=== PATIENT | female | born 1980 | race Asian ===

== ENCOUNTER 2022-02-18 08:23 | Outpatient (REF) | payer OTHER, SELFPAY ==
--- NOTE | ~2022-02-18 | MM_ITS ---
EXAMINATION: MM DIAGNOSTIC DIGITAL BREAST TOMOSYNTHESIS, BILATERAL US DIAGNOSTIC ULTRASOUND BREAST, BILATERAL CLINICAL INFORMATION: 41-year-old with bilateral breast pain upper outer quadrants. No palpable mass or discharge. Prior mammography performed in [place] and unavailable. No known family history breast cancer. TC score 12%. COMPARISON: None (current study represents new baseline exam). TECHNIQUE: Digital breast tomosynthesis is performed in both the craniocaudal and mediolateral oblique views along with computer-aided detection (CAD). Synthesized 2D images are generated from the tomosynthesis. Ultrasound bilateral breasts is targeted to the areas of clinical concern upper outer quadrant. Grayscale imaging and color Doppler are performed without and with harmonics. FINDINGS: There are scattered areas of fibroglandular density (ACR BI-RADS breast composition Category b). Breast tissue composition borders on heterogeneously dense. There is no mass or architectural abnormality. No abnormal calcifications. The axilla are unremarkable. Skin contours are smooth. There is no skin thickening or coarsening of the Brayden's ligaments. Ultrasound bilateral breasts demonstrate no cystic or solid mass, architectural abnormality, or focal duct ectasia on either side. There is no skin thickening or edema tracking in the soft tissue planes. No hyperemia. Results are discussed with the patient at time of visit. Patient notes the breast pain is cyclical, waxing and waning with menses. If the outside mammography is able to be retrieved, we will be able to make comparison in an addendum report. MM/MM tomosynthesis diagnostic BI IMPRESSION: -No mammographic evidence of malignancy or inflammatory changes. -Unremarkable bilateral breast ultrasound. ASSESSMENT: BI-RADS 1: Negative RECOMMENDATION: 1. 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 2. Otherwise, routine annual screening mammography. This patient's information was entered into a reminder system with a target due date for their next mammogram.
== END 2022-02-18 08:24 | disposition home or self-care (01) ==
LOC: HO.MAMMO 08:23
PROVIDERS: PCP Family Medicine; Visit Provider Family Medicine
DX: N64.4 Mastodynia (principal)
CPT/HCPCS: 76642; 77062; 77066

== ENCOUNTER 2025-02-09 10:43 | Outpatient (REF) | payer MEDICAID, SELFPAY ==
--- OUTSIDE RECORDS SUMMARY | 2025-02-10 09:18 | XMS_ITS | Encounter Summary ---
Author Organization [employer] Address [address] [facility] [address] [place] [address] Care Team Providers Care Mask Inspector Name Role Phone Linda Underwood MD Primary Care Provider [phone] Reason for Visit * Reason Onset Date Comments chart prep 02/08/2025 Encounter Details Date Type Department Care Team ([facility] st Contact Info) Description 02/08/[address] [facility] MEDICINE [address] [place], [place] [phone] Monik Keane CNM [address] [place], [place] [phone] chart prep Social History Tobacco Use Types Packs/Day Years Used Date Smoking Tobacco: Never Assessed Depression Answer Date Recorded Patient Health Questionnaire-9 Score 1 02/09/2025 Patient Health Questionnaire-9 Score 1 02/09/2025 Last PHQ-9: Questionnaire Data Not on file 0 02/09/2025 Housing Stability Answer Date Recorded What is your housing situation today? I have wale rogel 02/09/[address] you li ve. Do you have problems with any of the following? None of the above 02/09/2025 Food Insecurity Answer Date Recorded Within the past 12 months, y ou worried that your food would run out before you got money to buy more: Never True 02/09/2025 Within the past 12 months,th e food you bought just didn't last and you didn't have enough money to get more: Never True Transportation Answer Date Recorded In the past 12 months, has l ack of transportation kept you from medical appts, meetings, work or from getting things needed for daily living? No 02/09/2025 Utilities Answer Date Recorded In the past 12 months, has t he electric, gas, oil or water company threatened to shut off services in your home? No 02/09/2025 Depression Answer Date Recorded Patient Health Questionnaire-2 Score 0 02/09/2025 Internet Access Answer Date Recorded Internet Access Q1 Yes 02/09/2025 Internet Access Q2 Not on file 02/09/2025 Comments Unknown Sex and Gender Information Value Date Recorded Sex Assigned at Female 04/21/2022 10:38 AM EDT Legal Sex Female 10:38 AM EDT Gender Identity Female 04/21/2022 10:38 AM EDT Sexual Orientation Don't know 04/21/2022 10 :38 AM EDT documented as of this encounter Miscellaneous Notes * Telephone Encounter - America Welch MA - 02/08/2025 10:05 AM EDT ..Chart Prep Labs: not applicable Images: not applicable Vaccines due: Covid Due and Hep B Due Referrals: Not Applicable Screenings: Colonoscopy , PAP, and Mammogram Overdue care gaps: Sbirt, SDOH, PQ9, GAD7, Disability , and Oral Health documented in this encounter Plan of Treatment Not on file documented as of this encounter Visit Diagnoses Not on filedocumented in this encounter Care Teams Mask Inspector Relationship Specialty Start Date End Date Linda Underwood MD [address] [place] [address] PCP - General Family Medicine 07/03/21 documented as of this encounter
[2025-02-13 19:58] LABS: C. trachomatis RNA TMA NOT DETECTED (NOT DETECTED); N. gonorrhoeae RNA TMA NOT DETECTED (NOT DETECTED); Trichomonas (NAAT) NOT DETECTED (NOT DETECTED)
== END 2025-02-09 10:44 | disposition home or self-care (01) ==
LOC: HO.LNP 10:43
PROVIDERS: Visit Provider Advanced Practice Midwife
DX: Z12.4 Encounter for screening for malignant neoplasm of cervix (principal); Z11.3 Encounter for screening for infections with a predominantly sexual mode of transmission; Z11.51 Encounter for screening for human papillomavirus (HPV); Z11.8 Encounter for screening for other infectious and parasitic diseases; R35.0 Frequency of micturition
CPT/HCPCS: 87086; 87491; 87591; 87626; 87661; 88175

== ENCOUNTER 2025-03-27 13:27 | Outpatient (REF) | payer MEDICAID, SELFPAY ==
--- OUTSIDE RECORDS SUMMARY | 2025-03-27 13:00 | XMS_ITS | Encounter Summary ---
Author Organization [employer] Address [address] [facility] [address] [place] [address] Care Team Providers Care Deep Sea Diver Name Role Phone Linda Underwood MD Primary Care Provider [phone] Encounter Details Date Type Department Care Team (Late st Contact Info) Description 03/27/2025 1:00 PM EDT Office Visit [facility] MEDICINE [address] [place], [place] [phone] Linda Underwood MD [address] [place], [place] [phone] Rash (Primary Dx); Colon cancer screening; Breast cancer screening by mammogram; Screening for lipid disorders; Screening for diabetes mellitus Social History Tobacco Use Types Packs/Day Years Used Date Smoking Tobacco: Former Cigarettes Passive Smoke Exposure: Current Smokeless Tobacco: Former Tobacco Cessation:Counseling Given: Not Answered Alcohol Use Standard Drinks/Week Comments Never 0 (1 standard drink = 0.6 oz pur e alcohol) Depression Answer Date Recorded Patient Health Questionnaire-9 [...] Access Q2 Not on file 02/09/2025 Comments No Sex and Gender Information Value Date Recorded Sex Assigned at Female 04/21/2022 10:38 AM EDT Legal Sex Female 10:38 AM EDT Gender Identity Female 04/21/2022 10:38 AM EDT Sexual Orientation Don't know 04/21/2022 10 :38 AM EDT documented as of this encounter Last Filed Vital Signs Vital Sign Reading Time Taken Comments Blood Pressure 110/70 03/27/2025 12:59 PM EDT Pulse 77 03/27/2025 12:59 PM EDT Temperature 36.7 C (98.1 F) 03/27/2025 12:59 PM EDT Respiratory Rate 20 03/27/2025 12:59 PM EDT Oxygen Saturation 97% 03/27/2025 12:59 PM EDT Inhaled Oxygen Concentration - - Weight 71.8 kg (158 lb 3.2 oz) 03/27/2025 12:59 PM EDT Height 170.2 cm (5' 7 ) 03/27/2025 12:59 PM EDT Body Mass Index 24.78 03/27/2025 12:59 PM EDT documented in this encounter Plan of Treatment Scheduled Orders Name Type Priority Associated Diagnoses Orde r Schedule Comprehensive Metabolic Panel Lab Routine Rash Expected: 03/27/2025 (Approximate), Expires: 03/27/2026 CBC auto differential Lab Routine Rash Expected: 03/27/2025 (Approximate), Expires: 03/27/2026 Lipid Panel with Reflex to Direct LDL Lab Routine Screening for lipid disorders Expected: 03/27/2025 (Approximate), Expires: 03/27/2026 TSH with Reflex to Free T4 Lab Routine Rash Expected: 03/27/2025 (Approximate), Expires: 03/27/2026 Hemoglobin A1c Lab Routine Screening for diabetes mellitus Expected: 03/27/2025 (Approximate), Expires: 03/27/2026 Cologuard colon cancer screening Lab Routine Colon cancer screening Ordered: 03/27/2025 documented as of this encounter Visit Diagnoses Diagnosis Rash- Primary Rash and other nonspecific skin eruption Colon cancer screening Special screening for malignant neoplasms, colon Breast cancer screening by mammogram Screening for lipid disorders Screening for diabetes mellitus documented in this encounter Additional Health Concerns Assessment Noted Time PHQ-9 Depression Total Score: 1 02/10/20 25 11:08 AM EDT documented as of this encounter Care Teams Deep Sea Diver Relationship Specialty Start Date End Date Linda Underwood MD [address] [place] [address] PCP - General Family Medicine 07/03/21 documented as of this encounter
--- OUTSIDE RECORDS SUMMARY | 2025-03-27 15:49 | XMS_ITS | Encounter Summary ---
Author Organization [email or web address] Address [address] [facility] [address]t [place] [address] Care Team Providers Care Geographic Information Systems Manager Name Role Phone Linda Underwood MD Primary Care Provider [phone] Reason for Visit * Reason Onset Date Comments Med Refill 02/14/2025 Encounter Details Date Type Department Care Team ([facility] st Contact Info) Description 02/14/2025 Telephone [facility] MEDICINE [address] [place], [place] [phone] Linda Underwood MD [address] [place], [place] [phone] Med Refill Social History Tobacco Use Types Packs/Day Years Used Date Smoking Tobacco: Former Cigarettes Passive Smoke Exposure: Current Smokeless Tobacco: Former Alcohol Use Standard Drinks/Week Comments Never 0 [...] encounter Miscellaneous Notes * Telephone Encounter - Ruby Pierre LPN - 02/14/2025 12:59 PM EDT Medication was sent to [id number] on 02/09/25 it was short term 1 dose. * Telephone Encounter - Usama Rodriguez - 02/14/2025 12:19 PM EDT TC from pt requesting medication refill. Medications needing refill : fluconazole (Diflucan) 150 MG tablet To be sent to: [facility] #[id number] documented in this encounter Plan of Treatment Not on file documented as of this encounter Visit Diagnoses Not on filedocumented in this encounter Additional Health Concerns Assessment Noted Time PHQ-9 Depression Total Score: 1 02/10/20 25 11:08 AM EDT documented as of this encounter Care Teams Geographic Information Systems Manager Relationship Specialty Start Date End Date Linda Underwood MD [address] [place] [id number] PCP - General Family Medicine 07/03/21 documented as of this encounter
--- OUTSIDE RECORDS SUMMARY | 2025-03-27 15:49 | XMS_ITS | Encounter Summary ---
Author Organization [employer] Address [address] [facility] [address] [place] [address] Care Team Providers Care Timber Sizer Name Role Phone Linda Underwood MD Primary Care Provider [phone] Reason for Visit * Reason Onset Date Comments Results 02/16/2025 Encounter Details Date Type Department Care Team ([facility] st Contact Info) Description 02/16/2025 Results Follow-Up [facility] MEDICINE [address] [place] [address] Monik Keane CNM [address] [place] [address] POCT urinalysis dipstick manually resulted, Culture, Urine, Routine, Pap Smear, STI testing add on (NG, CT, Trich) Social History Tobacco Use Types Packs/Day Years [...] as of this encounter Miscellaneous Notes * Result Encounter Note - Monik Keane CNM - 02/17/2025 8:55 AM EDT Noted. Rx sent in - thanks! If she continues to have vaginal symptoms or urinary symptoms after treatment, will need appointment. * Telephone Encounter - Pat Rodriguez RN - 02/16/2025 2:11 PM EDT Telephone call placed to pt utilizing [facility] [employer] historic interpreter #[id number] regarding below results and POC. Informed Pap normal, HPV negative. Pt requesting Ucx results. Informed Cx negative, no UTI. Informed of bacterial shift in pap. Pt confirms she is still having vaginal Sx. Prefers pills be sent. Confirmed pharmacy on file. * Telephone Encounter - Pat Rodriguez RN - 02/16/2025 1:50 PM EDT ----- Message from Monik Keane sent at 02/16/2025 11:54 AM EDT ----- Please let Diane know her pap was normal, HPV negative. If she is still having vaginal symptoms, please let me know and I will send in treatment for bacterial vaginosis shift noted on pap. Thanks! ----- Message ----- From: Mauricio Medina MA Sent: 02/09/2025 10:52 AM EDT To: Monik Keane CNM * Result Encounter Note - Monik Keane CNM - 02/16/2025 11:54 AM EDT Please let Diane know her pap was normal, HPV negative. If she is still having vaginal symptoms, please let me know and I will send in treatment for bacterial vaginosis shift noted on pap. Thanks! documented in this encounter Plan of Treatment Not on file documented as of this encounter Visit Diagnoses Not on filedocumented in this encounter Additional Health Concerns Assessment Noted Time PHQ-9 Depression Total Score: 1 02/10/20 25 11:08 AM EDT documented as of this encounter Care Teams Timber Sizer Relationship Specialty Start Date End Date Linda Underwood MD [address] [place] [address] PCP - General Family Medicine 07/03/21 documented as of this encounter
--- OUTSIDE RECORDS SUMMARY | 2025-03-27 15:49 | XMS_ITS | Encounter Summary ---
Author Organization [employer] Address [address] [place] [address] Care Team Providers Care Configuration Management Manager Name Role Phone Linda Underwood MD Primary Care Provider [phone] Encounter Details Date Type Department Care Team (Late st Contact Info) Description 03/24/2025 Telephone [facility] [address] [place] [address] Isabelle Hope [place] Social History Tobacco Use Types Packs/Day Years [...] encounter Miscellaneous Notes * Telephone Encounter - Isabelle Hope [place] - 03/24/2025 10:19 AM EDT Chart Prep Labs: done Images: not applicable Referrals: none Vaccines due: Covid and Flu Screenings: colonoscopy and mammogram Overdue care gaps: Not applicable documented in this encounter Plan of Treatment Not on file documented as of this encounter Visit Diagnoses Not on filedocumented in this encounter Additional Health Concerns Assessment Noted Time PHQ-9 Depression Total Score: 1 02/10/20 25 11:08 AM EDT documented as of this encounter Care Teams Configuration Management Manager Relationship Specialty Start Date End Date Linda Underwood MD [address] [place] [address] PCP - General Family Medicine 07/03/21 documented as of this encounter
--- OUTSIDE RECORDS SUMMARY | 2025-03-27 15:49 | XMS_ITS | Encounter Summary ---
Author Organization [employer] Address [address] [place] [address] Care Team Providers Care Coke Handling Supervisor Name Role Phone Linda Underwood MD Primary Care Provider [phone] Encounter Details Date Type Department Care Team (Latest Contact Info) Description 03/27/2025 Travel Social History Tobacco Use Types Packs/Day Years [...] AM EDT documented as of this encounter Plan of Treatment Not on file documented as of this encounter Visit Diagnoses Not on filedocumented in this encounter Additional Health Concerns Assessment Noted Time PHQ-9 Depression Total Score: 1 02/10/20 25 11:08 AM EDT documented as of this encounter Care Teams Coke Handling Supervisor Relationship Specialty Start Date End Date Linda Underwood MD [address] [place] [address] PCP - General Family Medicine 07/03/21 documented as of this encounter
--- OUTSIDE RECORDS SUMMARY | 2025-03-27 15:49 | XMS_ITS | Clinical Summary ---
Author Organization [employer] Address [address] [facility] 7 h Floor [place] [phone] Care Team Providers Care Financial Officer Name Role Phone Linda Underwood MD Primary Care Provider [phone] Allergies No known active allergies Medications clobetasol (Temovate) 0.05 % cream Apply topically 2 times daily. 45 g 1 Active Active Problems No known active problems Encounters Date Type Department Care Team Description 03/27/2025 1:00 PM EDT Office Visit [address] [address] Linda Underwood MD Rash (Primary Dx); Colon cancer screening; Breast cancer screening by mammogram; Screening for lipid disorders; Screening for diabetes mellitus 03/27/2025 Travel 03/24/2025 Telephone [facility] [address] [place] [address] [phone] Isabelle Hope [place] 03/20/2025 Patient Outreach [facility] [address] [place], [place] [phone] Linda Underwood MD Pre-visit Planning ([facility] unable to reach [facility] ) 02/17/2025 Orders Only [address] [phone] Katie Solomon CNM 02/16/2025 Results Follow-Up [address] [phone] Katie Solomon CNM POCT urinalysis dipstick manually resulted, Culture, Urine, Routine, Pap Smear, STI testing add on (NG, CT, Trich) 02/14/[address] [phone] Linda Underwood MD Med Refill 02/09/2025 10:15 AM EDT Office Visit [facility] [address] [place] [address] Katie Solomon CNM Urinary frequency (Primary Dx); Routine cervical smear; Screening examination for venereal disease; Candidiasis of vulva and vagina 02/09/2025 Orders Only [facility] [address] [place] [address] Katie Solomon CNM 02/09/2025 Travel 02/08/2025 Telephone [facility] [address] [place] [address] Kaite Solomon CNM chart prep 01/30/2025 Travel 01/30/2025 Telephone [facility] [address] [place] [address] Linda Underwood MD Nurse Triage from Last 3 Months Social History Tobacco Use Types Packs/Day Years [...] Q2 Not on file 02/09/2025 Comments No Intention Date Recorded Wants to become (finding) 02/09 Sex and Gender Information Value Date Recorded Sex Assigned at Female 04/21/2022 10:38 AM EDT Legal Sex Female 10:38 AM EDT Gender Identity Female 04/21/2022 10:38 AM EDT Sexual Orientation Don't know 04/21/2022 10 :38 AM EDT Last Filed Vital Signs Vital Sign Reading [...] Mass Index 24.78 03/27/2025 12:59 PM EDT Plan of Treatment Health Maintenance Due Date Last Done Comments CT Colonography 1980 Colonoscopy 1980 Colorectal Cancer Screening 1980 FIT DNA/Cologuard 1980 FIT 1980 FOBT 1980 Sigmoidoscopy 1980 Mammogram 02/19/2024 02/18/2022 COVID-19 Vaccine ( season) 2025 05/06/2022, 06/26/2021, 12/16/2020, Additional history exists Influenza Vaccine (#1) 2025 , 06/26/2021, 03/26/2020 Alcohol/Substance Use Screening 02/09/2026 02/09/2025 Depression Screening 02/09/2026 02/09/2025, 02/10/20 25 Disability Screening 02/09/2026 02/09/2025 Family Planning (PISQ) 02/09/2026 02/09/2025 SDOH Screening 02/09/2026 02/09/2025 Tobacco Screening 03/27/2026 03/27/2025 Zoster Vaccines (1 of 2) 2028 Cervical Cancer Screening 02/09/2030 HPV/Cotest 02/09/2030 02/09/2025 Pap Smear 02/09/2030 02/09/2025 DTaP/Tdap/Td Vaccines (2 - Td or Tdap) 12/31/2030 12/31/2020 RSV Patients and Patients Aged 60 years or older (1 - 1-dose 75+ series) 2053 HIV Screening Completed 02/17/2022 Hepatitis C Screening Completed 02/17/2022 HIB Vaccines Aged Out No longer eligi ble based on patient's age to complete this topic HPV Vaccines Aged Out No longer eligi ble based on patient's age to complete this topic Hepatitis A Vaccines Aged Out No long er eligible based on patient's age to complete this topic Hepatitis B Vaccines Discontinued IPV Vaccines Aged Out No longer eligi ble based on patient's age to complete this topic Meningococcal B Vaccine Aged Out No l onger eligible based on patient's age to complete this topic Meningococcal Vaccine Aged Out No michelle sydni eligible based on patient's age to complete this topic Pneumococcal Vaccine: Pediatrics (0 to 5 Years) and At-Risk Patients (6 to 49) Years Aged Out No longer eligible based on patient's age to complete this topic RSV under 20 months Aged Out No longe r eligible based on patient's age to complete this topic Rotavirus Vaccines Aged Out No longer eligible based on patient's age to complete this topic Procedures Procedure Name Priority Date/Time Associated Diagnosis Comments POCT WET MOUNT/PINKY Routine 02/09/2025 10 :55 AM EDT Candidiasis of vulva and vagina POCT URINALYSIS DIPSTICK Routine 02/09/2025 10:49 AM EDT Urinary frequency CHLAMYDIA/N. GONORRHOEAE AND T. VAGINALIS RNA, QUAL,TMA Routine 02/09/2025 10:43 AM EDT Screening examination for venereal disease PAP SMEAR Routine 02/09/2025 10:43 AM EDT Routine cervical smear HPV DNA, LOW/HIGH RISK Routine 02/09/2025 10:43 AM EDT CULTURE, URINE, ROUTINE Routine 02/09/2025 10:43 AM EDT Urinary frequency MAMMOGRAM GENERIC Routine 02/18/2022 9:2 5 AM EDT ZZZ HISTORICAL HEPATITIS C AB W/REFL TO HCV RNA, QN, PCR Routine 02/17/2022 10:47 AM EDT HIV 1/2 ANTIGEN/ANTIBODY, FOURTH GENERATION W/RFL Routine 02/17/2022 10:47 AM EDT from Last 3 Months or Most Recently Relevant to Health Maintenance Results * POCT fern test, vaginal fluid manually resulted (02/09/2025 10:55 AM EDT) PINKY Prep Positive Comment:pH 4.5, pos hyphae, neg clue, neg trich, neg whiff, nen wbc Vaginal Fluid Vaginal structure / Unknown 02/09/2025 10:55 AM EDT Katie Solomon CNM POINT OF CARE TEST ENTER/ EDIT ORDERABLES Final Result * (ABNORMAL) POCT urinalysis dipstick manually resulted (02/09/2025 10:49 AM EDT) Color, UA Yellow Clarity, UA Clear Glucose, UA Negative Bilirubin, UA Negative Ketones, UA Negative Spec Grav, UA 1.010 Blood, UA Positive(A) Negative, None Detected Comment:trace-intact pH, UA 6.0 Protein, UA Negative Urobilinogen, UA 0.2 Leukocytes, UA Negative Negative, Rare, Trace Nitrite, UA Negative Negative, None Detected Appearance, UA clear QC Media Lot # [id number] Lot# Expiration Date [id number] Urine 02/09/2025 10:4 9 AM EDT Katie Solomon CNM POINT OF CARE TEST ENTER/ EDIT ORDERABLES Final Result * STI testing add on (NG, CT, Trich) (02/09/2025 10:43 AM EDT) Trichomonas (NAAT) NOT DETECTED NOT DETECTED [facility] Comment:The analytical perfo rmance characteristics of thisassay have been determined by [employer]. Themodifications have not been cleared or approved bythe FDA. This assay has been validated pursuant to theIA regulations and is used for clinical purposes.For additional information, please refer tohttp://education.99.co/faq/Trichomonastma(This link is being provided for information/educational purposes only.)THIS TEST WAS PERFORMED AT:[facility] [place] [phone] LANZA MD CTNG Ref Lab NOT DETECTED NOT DETECTED [facility] NG Ref Lab NOT DETECTED NOT DETECTED [facility] ThinPrep vial Cervix uteri structure / Unknown 02/09/2025 10:43 AM EDT 02/09/2025 1:55 PM EDT Narrative [facility] - 02/13/2025 7:58 PM EDT Collection Date: [id number] by: TITI Shelton: Cervix Katie Solomon CNM LAB CYTOLOGY ORDERABLES F inal Result [facility] [address] [place] [phone] * HPV DNA, Low/High Risk (02/09/2025 10:43 AM EDT) HPV High Risk Negative Negative [facility] HPV Genotype 16 Negative Negative [facility] HPV Genotype 18 Negative Negative [facility] Comment:HPV testing performe d at [facility] (CLIA#[id number]), [address] [place] [phone].Testing for HPV was performed using the Grabiel LISA 6800system. The presence of HPV in the female genital tract isassociated with a number of diseases, including cervicalcarcinoma. The HPV DNA high risk pool tests for HPV 31, 33,35, 39, 45, 51, 52, 56, 58, 59, 66 and 68. The testing forHPV 16 and 18 genotypes has also been performed. A positiveresult indicates detection of nucleic acid sequences fromone or more subtypes, whereas a negative result indicatessuch sequences were not detected. 02/09/2025 10:4 3 AM EDT 02/10/2025 8:25 AM EDT Katie Solomon [facility] BLOOD ORDERABLES Nimisha l Result [facility] [address] [place] [phone] * Culture, Urine, Routine (02/09/2025 10:43 AM EDT) Urine Urine specimen obtained by clean catch procedure / Unknown 02/09/2025 10:43 AM EDT 02/09/2025 1:47 PM EDT Comment:UACC Narrative [facility] - 02/10/2025 11:21 AM EDT Urine Culture No growth. Specimen Source: Urine clean catch Katie Solomon [facility] MICROBIOLOGY - GENERA L ORDERABLES Final Result [facility] [address] [place] [phone] * Pap Smear (02/09/2025 10:43 AM EDT) Swab Cervix uteri structure / Unknown 02/09/2025 10:43 AM EDT 02/10/2025 8:25 AM EDT [facility] - 02/16/2025 11:46 AM EDT ----- ------- Name: JANAE GARCIA Age/Sex: 44/F : 1980 Unit#: [id number] Attend Dr: KATIE SOLOMON CNM Re02/09/25 Status: [facility] REF Location: [facility] Disch: ----- ------- SPEC : [id number] RECD: 02/10/25 STATUS: MIKE LOCO NUM: [id number] MAYO: 02/09/25-[address] [facility] [address]: KATIE SOLOMON CNM ENTERED: 02/10/25 SP TYPE: Pap Smr OT DR: ORDERED: Pap Smear Interpretation Satisfactory for evaluation. Negative for intraepithelial lesion or malignancy. Coccobacilli consistent with shift in vaginal ange. HPV High Risk: Negative HPV Genotyping 16: Negative HPV Genotyping 18: Negative Clinical Information LMP: 01/23/2025 Previous PAP test: 2019, Unknown findings Other history: Routine cervical smear Material Received ThinPrep-Cervical PAP Disclaimer As of April 13, 2024, the technical services to include automated prescreening performed by the ThinPrep Imaging System, PAP screening and HPV testing will be performed at [facility] (CLIA #[id number]), [address] [place] [address]. Testing for HPV was performed using the ZhilabsAS 6800 system. The presence of HPV in the female genital tract is associated with a number of diseases, including cervical carcinoma. The HPV DNA high risk pool tests for HPV 31, 33, 35, 39, 45, 51, 52, 56, 58, 59, 66 and 68. The testing for HPV 16 and 18 genotypes has also been performed. A positive result indicates detection of nucleic acid sequences from one or more subtypes, whereas a negative result indicates such sequences were not detected. All professional services are performed by [facility] ([address] [place] [address]; ; CLIA #[id number]). The PAP Test is a screening procedure with the inherent possibility of both false negative and false positive results. Results should be interpreted in the context of historic and current clinical findings. Reliability of the PAP Test is enhanced by performing the test on a regular repetitive basis. CONTINUED ON NEXT PAGE ----- ------- Name: JANAE GARCIA Age/Sex: 44/F : 1980 Unit#: [id number] Attend Dr: KATIE SOLOMON CNM Re02/09/25 Status: DEP REF Location: [facility] Disch: ----- ------- SPEC : [id number] RECD: 02/10/25 STATUS: MIKE ADAN NUM: [id number] MAYO: 02/09/25-[address]: KATIE SOLOMON CNM ENTERED: 02/10/25-846 SP TYPE: Pap Smr SUSIE ARVIZU: ORDERED: Pap Smear ----- ------- Signed (signature on file) SANDIE Joel (ASCP) 02/16/25 1146 ----- ------- END OF REPORT Katie Solomon CNM LAB CYTOLOGY ORDERABLES F inal Result [facility] [address] [place] [phone] * Mammography Report 1 (02/18/2022 9:25 AM EDT) Anatomical Region Laterality Modality Breast Bilateral Mammography 02/18/2022 9:25 AM EDT Narrative 02/19/2022 8:30 AM EDT Refer to the Notes tab for result details [facility] Procedure: Mammography Report 1 Procedure Note Provider, MD Diego - 09/14/2022 Refer to the Notes tab for result details [facility] Procedure: Mammography Report 1 Linda Underwood MD IMG BI PROCEDURES Final Result * HEPATITIS C AB W/REFL TO HCV RNA, QN, PCR (02/17/2022 10:47 AM EDT) HEPATITIS C ANTIBODY NON-REACT JONO NON-REACT JONO [facility] INDEX 0.05 <1.00 [facility] Comment: HCV antibody was non-reactive. There is no laboratory evidence of HCV infection. In most cases, no further action is required. However, if recent HCV exposure is suspected, a test for HCV RNA (test code 65347) is suggested. For additional information please refer to http://Budding Biologist.99.co/faq/TJK17h0 (This link is being provided for informational/ educational purposes only.) 02/17/2022 10:4 7 AM EDT us Linda Underwood MD HISTORICAL/NON ORDERABLE LABS Fi nal Result Performing Organization Address City/State/[facility] Co de Phone Number [facility] [address] * HIV 1/2 ANTIGEN/ANTIBODY,FOURTH GENERATION W/RFL (02/17/2022 10:47 AM EDT) HIV-1/2 ANTIGEN AND ANTIBODIES, 4TH GENERATION W/ REFLEX NON-REACT JONO NON-REACT JONO [facility] Comment: HIV-1 antigen and HIV-1/HIV-2 antibodies were not detected. There is no laboratory evidence of HIV infection. PLEASE NOTE: This information has been disclosed to you from records whose confidentiality may be protected by state law. If your state requires such protection, then the state law prohibits you from making any further disclosure of the information without the specific written consent of the person to whom it pertains, or as otherwise permitted by law. A general authorization for the release of medical or other information is NOT sufficient for this purpose. For additional information please refer to http://Budding Biologist.Spreedly.Imprint Energy/faq/UBX357 (This link is being provided for informational/ educational purposes only.) The performance of this assay has not been clinically validated in patients less than 2 years old. 02/17/2022 10:4 7 AM EDT us Linda Underwood MD LAB BLOOD ORDERABLES Final Resul t [facility] [address] from Last 3 Months or Most Recently Relevant to Health Maintenance Insurance [facility] C3 Care Teams Financial Officer Relationship Specialty Start Date End Date Linda Underwood MD [address] [place] [phone] PCP - General Family Medicine 07/03/21
[2025-03-27 16:03] LABS: MANUAL DIFF FLAG NO
[2025-03-27 16:15] LABS: Hematocrit 40.7 % (37.0-47.0); Hemoglobin 13.4 g/dl (12.0-16.0); Imm Gran Abs Auto 0.02 X10*3/uL (0.00-0.03); Imm Gran Pct Auto 0.3 % (0.0-0.4); Lymphocytes Absolute Auto 1.8 X10*3/uL (1.2-4.9); Mean Corpuscular HGB Conc 32.9 g/dl (31.0-35.0); Mean Corpuscular Hemoglobin 30.8 pg (27.0-33.0); Mean Corpuscular Volume 93.6 fL (80.0-98.0); NRBC Abs Auto 0.000 X10*3/uL (0.0-0.012); NRBC Pct Auto 0.0 /100WBC (0.0-0.2); Platelet Count 228 X10*3/uL (160-400); Red Blood Count 4.35 X10*6/uL (4.20-5.50); White Blood Count 6.6 X10*3/uL (4.8-10.8)
[2025-03-27 16:34] LABS: Alanine Aminotransferase 10 U/L (0-31); Albumin Level 4.3 g/dL (3.5-5.0); Alkaline Phosphatase 39 U/L (39-117); Anion Gap 9 (12-20); Aspartate Amino Transferase 20 U/L (5-31); Blood Urea Nitrogen 9 mg/dL (9-16); Calcium 8.4 mg/dL (8.4-10.2); Carbon Dioxide 25 mmol/L (22-29); Chloride 108 mmol/L (96-108); Cholesterol 173 mg/dL (<200); Estimated Glomerular Filt Rate > 60; HDL Cholesterol 46 mg/dL (>40); Potassium 3.7 mmol/L (3.3-5.1); Sodium 138 mmol/L (135-145); Total Protein 6.5 g/dL (6.5-8.0); Triglycerides 123 mg/dL (<150)
[2025-03-27 17:44] LABS: Reflex LDLD? No
[2025-03-28 07:48] LABS: Syphilis Screen Nonreactive (Nonreactive)
[2025-03-28 08:16] LABS: HIV Num 1 0.05 S/CO (0.00-0.99); ~HepC Num1 0.07 S/CO (0.00-0.79); ~Hepatitis C Antibody Nonreactive (Nonreactive)
== END 2025-03-27 13:28 | disposition home or self-care (01) ==
LOC: HO.HHCL 13:27
PROVIDERS: Advanced Practice Midwife; PCP Family Medicine; Visit Provider Family Medicine
DX: Z11.3 Encounter for screening for infections with a predominantly sexual mode of transmission (principal); Z13.1 Encounter for screening for diabetes mellitus; Z11.4 Encounter for screening for human immunodeficiency virus [HIV]; Z13.220 Encounter for screening for lipoid disorders; R21 Rash and other nonspecific skin eruption
CPT/HCPCS: 36415; 80053; 80061; 83036; 84443; 85025; 86780; 86803; 87389

== ENCOUNTER 2025-06-08 09:42 | Outpatient (REF) | payer MEDICAID, SELFPAY ==
--- OUTSIDE RECORDS SUMMARY | 2025-06-08 11:25 | XMS_ITS | Encounter Summary ---
Author Organization [employer] Address [address] [facility] 7t [place] [address] Care Team Providers Care Macaroni Press Operator Name Role Phone Linda Underwood MD Primary Care Provider [phone] Reason for Visit * Reason Onset Date Comments Med Refill 02/14/2025 Encounter Details Date Type Department Care Team ([facility] st Contact Info) Description 02/14/2025 Telephone [facility] [address] [place], [place] [phone] Linda Underwood MD [address] [place], [place] [phone] Med Refill Social History Tobacco Use Types [...] 12:59 PM EDT Medication was sent to [email or web address][id number] on 02/09/25 it was short term 1 dose. * Telephone Encounter - Usama Rodriguez - 02/14/2025 12:19 PM EDT TC from pt requesting medication refill. Medications needing refill : fluconazole (Diflucan) 150 MG tablet To be sent to: [id number] documented in this encounter Plan of Treatment Not on file documented as of this encounter Visit Diagnoses Not on filedocumented in this encounter Additional Health Concerns Assessment Noted Time PHQ-9 Depression Total Score: 1 02/10/20 25 11:08 AM EDT documented as of this encounter Care Teams Macaroni Press Operator Relationship Specialty Start Date End Date Linda Underwood MD [address] [place] [phone] PCP - General Family Medicine 07/03/21 documented as of this encounter
--- OUTSIDE RECORDS SUMMARY | 2025-06-08 11:25 | XMS_ITS | Encounter Summary ---
Author Organization [employer] Address [address] [facility] [address] 7t [place] [address] Care Team Providers Care Piece Dyeing Machine Tender Name Role Phone Linda Underwood MD Primary Care Provider [phone] Encounter Details Date Type Department Care Team (Late st Contact Info) Description 03/27/2025 Orders Only [facility] [address] [place], [place] [phone] Linda Underwood MD [address] [place], [place] [phone] Social History Tobacco Use Types Packs/Day Years [...] documented as of this encounter Care Teams Piece Dyeing Machine Tender Relationship Specialty Start Date End Date Linda Underwood MD [address] [place] [phone] PCP - General Family Medicine 07/03/21 documented as of this encounter
--- OUTSIDE RECORDS SUMMARY | 2025-06-08 11:26 | XMS_ITS | Clinical Summary ---
Author Organization [employer] Address [address] [place] [address] Care Team Providers Care Compounder Name Role Phone Linda Underwood MD Primary Care Provider [phone] Allergies No known active allergies Medications clobetasol (Temovate) 0.05 % cream Apply topically 2 times daily. 45 g 1 5 Active topiramate (Topamax) 25 MG tablet Take 1 tablet (25 mg) by mouth Once per day. 90 tablet 3 5 03/27/20 26 Active multivitamin () 27-0.8 MG tabletIndication s:, unspecified gestational age Take 1 tablet by mouth Once per day. 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 (04/07/2025 12:30 PM EDT): - chronic - pruritic - refractory to antifungal treatment - better response to topical steroid - try higher potency topical steroid Tobacco use 04/07/2025 Assessment & Plan (04/07/2025 12:56 PM EDT): - continue working on smoking cessation effort Binge eating disorder 03/27/2025 Assessment & Plan (03/27/2025 5:53 PM EDT): - patient has busy work schedule and CBT is difficult - will try topiramate 25 mg daily, titrate up every 2-4 weeks as tolerated - consider lidexamphetamine if topiramate is ineffective - continue addressing triggers and cause as well as behaviors - continue working on stress reduction Encounters Date Type Department Care Team Description 06/07/2025 Orders Only [facility] [address] [place] [phone] [place] [facility] and not yet delivered in first trimester (Primary Dx) 06/05/2025 Orders Only [facility] [address] [place] [address] [place] [facility] , unspecified gestational age (Primary Dx) 05/29/2025 Results Follow-Up [facility] [address] [place] [address] Thyu Scott, [facility] [employer] [employer] Cologuard colon cancer screening 03/28/[address] [address] Linda Underwood MD Medication Question 03/27/2025 1:00 PM EDT Office Visit [address] [address] Linda Underwood MD Rash (Primary Dx); Colon cancer screening; Breast cancer screening by mammogram; Screening for lipid disorders; Screening for diabetes mellitus; Moderate binge-eating disorder; Dermatitis of left foot; Tobacco use 03/27/2025 Orders Only [address] [address] Linda Underwood MD 03/27/2025 Travel 03/24/2025 Telephone [facility] [address] [place] [address] [place] 03/20/2025 Patient Outreach [facility] [address] [place] [phone] Linda Underwood MD Pre-visit Planning ([facility] unable to reach [facility] ) from Last 3 Months Social History Tobacco [...] file 02/09/2025 Comments No Intention Date Recorded Ambivalent about becoming (find ing) 03/27/2025 Sex and Gender Information Value Date Recorded [...] Done Comments CT Colonography 1980 Colonoscopy 1980 FIT 1980 Sigmoidoscopy 1980 Mammogram 02/19/2024 02/18/2022 COVID-19 Vaccine ( season) 2025 05/06/2022, 06/26/2021, 12/16/2020, Additional history exists Influenza Vaccine (#1) 2025 2, 06/26/2021, 03/26/2020 Alcohol/Substance Use Screening 02/09/2026 02/09/2025 Depression Screening 02/09/2026 02/09/2025, 02/10/20 25 Disability Screening 02/09/2026 02/09/2025 SDOH Screening 02/09/2026 02/09/2025 Family Planning (PISQ) 03/27/2026 03/27/2025 Tobacco Screening 03/27/2026 03/27/2025 FOBT 05/22/2026 05/22/2025 Colorectal Cancer Screening 05/22/2028 FIT DNA/Cologuard 05/22/2028 05/22/2025 Zoster Vaccines (1 of 2) 2028 Cervical Cancer Screening 02/09/2030 HPV/Cotest 02/09/2030 02/09/2025 Pap Smear 02/09/2030 02/09/2025 DTaP/Tdap/Td Vaccines (2 - Td or Tdap) 12/31/2030 12/31/2020 RSV Patients and Patients Aged 60 years or older (1 - 1-dose 75+ series) 2053 HIV Screening Completed 03/27/2025, 02/17/2022 Hepatitis C Screening Completed 03/27/2025, 022 HIB Vaccines Aged Out No longer eligi [...] Procedure Name Priority Date/Time Associated Diagnosis Comments LAB COLOGUARD COLON CANCER SCREEN Routine 05/22/2025 11:52 AM EST Colon cancer screening HEMOGLOBIN A1C Routine 03/27/2025 1:31 PM EDT Screening for diabetes mellitus TSH W/REFLEX TO FT4 Routine 03/27/2025 1 :31 PM EDT Rash LIPID PANEL WITH REFLEX TO DIRECT LDL Routine 03/27/2025 1:31 PM EDT Screening for lipid disorders CBC WITH AUTO DIFFERENTIAL Routine 03/27/2025 1:31 PM EDT Rash COMPREHENSIVE METABOLIC PANEL Routine 03/27/2025 1:31 PM EDT Rash HIV 1/2 ANTIGEN/ANTIBODY, FOURTH GENERATION W/RFL Routine 03/27/2025 1:31 PM EDT Screening examination for venereal disease SYPHILIS SCREEN Routine 03/27/2025 1:31 PM EDT Screening examination for venereal disease HEPATITIS C AB W/REFL TO HCV RNA, QN, PCR Routine 03/27/2025 1:31 PM EDT Screening examination for venereal disease HPV DNA, LOW/HIGH RISK Routine 10:43 AM EDT PAP SMEAR Routine 02/09/2025 10:43 AM EDT Routine cervical smear MAMMOGRAM GENERIC Routine 02/18/2022 9:2 5 AM EDT from Last 3 Months or Most Recently Relevant to Health Maintenance Results * (ABNORMAL) Cologuard?? colon cancer screening (05/22/2025 11:52 AM EST) Cologuard Result Positive( A) Negative 05/28/2025 8:28 AM EST [facility] (CLIA #:[id number]) Comment: The Cologuard (TM) test was performed on this specimen. POSITIVE TEST RESULT. A positive Cologuard result should be followed with a colonoscopy or visual examination of the colon. The normal value (reference range) for this assay is negative. TEST DESCRIPTION: Composite algorithmic analysis of stool DNA-biomarkers with hemoglobin immunoassay. Quantitative values of individual biomarkers are not reportable and are not associated with individual biomarker result reference ranges. Cologuard is intended for colorectal cancer screening of adults of either sex, 45 years or older, who are at average-risk for colorectal cancer (CRC). Cologuard has been approved for use by the U.S. FDA. The performance of Cologuard was established in a cross sectional study of average-risk adults aged 50-84. Cologuard performance in patients ages 45 to 49 years was estimated by sub-group analysis of near-age groups. Colonoscopies performed for a positive result may find as the most clinically significant lesion: colorectal cancer [4.0%], advanced adenoma (including sessile serrated polyps greater than or equal to 1cm diameter) [20%] or non- advanced adenoma [31%]; or no colorectal neoplasia [45%]. These estimates are derived from a prospective cross-sectional screening study of 10,000 individuals at average risk for colorectal cancer who were screened with both Cologuard and colonoscopy. ([place] al, N Engl J Med 2014;370(14):6790-3423.) Cologuard may produce a false negative or false positive result (no colorectal cancer or precancerous polyp present at colonoscopy follow up). A negative Cologuard test result does not guarantee the absence of CRC or advanced adenoma (pre-cancer). The current Cologuard screening interval is every 3 years. ([place] [employer] and U.S. Multi-Society Task Force). Cologuard performance data in a 10,000 patient pivotal study using colonoscopy as the reference method can be accessed at the following location: [email or web address]/results. Additional description of the Cologuard test process, warnings and precautions can be found at www.cologuard.com. Stool specimen (specimen) 05/22/2025 11:52 AM EST 05/24/2025 3:02 PM EST Linda Underwood MD LAB MOLECULAR DIAGNOSTICS ORDERA BLES Final Result Performing Organization Address [facility] Co de Phone Number [facility] (CLIA #:[id number]) [address] [place] [address], * Syphilis Screen (03/27/2025 1:31 PM EDT) Syphilis Screen Nonreactive Nonreactive [facility] Blood Venous blood specimen / Unknown 03/27/2025 1:31 PM EDT 03/27/2025 4:03 PM EDT Katie Solomon CNM LAB BLOOD ORDERABLES Nimisha l Result Performing Organization Address [facility] Co de Phone Number [facility] [address] [place] [phone] * TSH with Reflex to Free T4 (03/27/2025 1:31 PM EDT) TSH reflex Free T4 0.88 0.32 - 4.0 uIU/mL [facility] Blood 03/27/2025 1:31 PM EDT 03/27/2025 4:03 PM EDT Linda Underwood MD LAB BLOOD ORDERABLES Final Resul t Performing Organization Address [facility] Co de Phone Number [facility] [address] [place] [phone] * (ABNORMAL) Lipid Panel with Reflex to Direct LDL (03/27/2025 1:31 PM EDT) Triglycerides 123 <150 mg/dL [facility] Comment:Desirable Triglyceri de: less than 150 mg/dLBorderline High Triglyceride 150-199 mg/dLHigh Triglyceride: 200-499 mg/dLVery High Triglyceride: greater than or equal to 5OO mg/dL Cholesterol 173 <200 mg/dL [facility] Comment:Desirable Cholestero l: less than 200 mg/dLBorderline High Cholesterol: 200-239 mg/dLHigh Cholesterol: greater than 239 mg/dL LDL Cholesterol Calculated 103(H) <100 mg/dL [facility] Comment:Desirable LDL: less than 100 mg/dLNear Optimal/Above Optimal LDL: 110- 129 mg/dLBorderline High LDL: 130-159 mg/dLHigh LDL: 160-189 mg/dLVery High LDL: greater than or equal to 190 mg/dL HDL Cholesterol 46 >40 mg/dL [facility] Comment:Desirable HDL: great er than 40 mg/dL Note: This HDL assay may give artificially low results in patients with liver disease. Blood 03/27/2025 1:31 PM EDT 03/27/2025 4:03 PM EDT us Linda Underwood MD LAB BLOOD ORDERABLES Final Resul t [facility] [address] [place] [phone] * CBC auto differential (03/27/2025 1:31 PM EDT) White Blood Count 6.6 4.8 - 10.8 X10*3/uL [facility] Red Blood Count 4.35 4.20 - 5.50 X10*6/uL [facility] Hemoglobin 13.4 12.0 - 16.0 g/dl [facility] Hematocrit 40.7 37.0 - 47.0 % [facility] Mean Corpuscular Volume 93.6 80.0 - 98.0 fL [facility] Mean Corpuscular Hemoglobin 30.8 27.0 - 33.0 pg [facility] Mean Corpuscular HGB Conc 32.9 31.0 - 35.0 g/dl [facility] Red Cell Distribution Width 12.8 11.0 - 16.0 % [facility] Platelet Count 228 160 - 400 X10*3/uL [facility] Mean Platelet Volume 11.3 9.4 - 12.3 fL [facility] Neutrophils Percent Auto 65.8 45 - 73 % [facility] Imm Gran Pct Auto 0.3 0.0 - 0.4 % [facility] Lymphocytes Percent Auto 26.9 20 - 40 % [facility] Monocytes Percent Auto 5.6 2 - 11 % [facility] Eosinophils Percent Auto 0.9 0 - 4 % [facility] Basophils Percent Auto 0.5 0 - 2 % [facility] NRBC Pct Auto 0.0 0.0 - 0.2 /100WBC [facility] Neutrophils Absolute Auto 4.4 2.0 - 8.3 x10*3/uL [facility] Imm Gran Abs Auto 0.02 0.00 - 0.03 X10*3/uL [facility] Lymphocytes Absolute Auto 1.8 1.2 - 4.9 X10*3/uL [facility] Monocytes Absolute Auto 0.4 0.1 - 1.2 X10*3/uL [facility] Eosinophils Absolute Auto 0.1 0.0 - 0.4 X10*3/uL [facility] Basophils Absolute Auto 0.0 0.0 - 0.2 X10*3/uL [facility] NRBC Abs Auto 0.000 0.0 - 0.012 X10*3/uL [facility] Blood Venous blood specimen / Unknown 03/27/2025 1:31 PM EDT 03/27/2025 4:00 PM EDT us Linda Underwood MD LAB BLOOD ORDERABLES Final Resul t [facility] [address] [place] [phone] * Hepatitis C Antibody with Reflex to HCV, RNA, Quantitative, Real-Time PCR (03/27/2025 1:31 PM EDT) Pathologist [facility] Hepatitis C Antibody Nonreactive Nonreactive [facility] Comment:Antibodies to HCV no t detected; does not exclude early acuteHCV infection. Blood Venous blood specimen / Unknown 03/27/2025 1:31 PM EDT 03/27/2025 4:03 PM EDT Katie Solomon [facility] LAB BLOOD ORDERABLES Nimisha l Result Performing Organization Address [facility] Co de Phone Number [facility] [address] [place] [phone] * HIV-1/2 Antigen and Antibodies, Fourth Generation, with Reflexes (03/27/2025 1:31 PM EDT) [facility] HIV AB/AG Nonreactive Nonreactive [facility] Comment:HIV-1 p24 Ag and/or HIV-1/HIV-2 Ab not detected.A test result that is nonreactive does not exclude thepossibility of exposure to or infection with HIV-1 and/orHIV-2. Nonreactive results in this assay for individualswith prior exposure to HIV-1 and/or HIV-2 may be due toantigen and antibody levels that are below the limit ofdetection of this assay.The Message [employer] HIV Ag/Ab Combo assay result andsupplemental assay results should be interpreted inconjunction with the patient's clinical presentation,history and other laboratory results. If the results areinconsistent with clinical evidence, additional testing issuggested to confirm the result. Blood Venous blood specimen / Unknown 03/27/2025 1:31 PM EDT 03/27/2025 4:03 PM EDT Katie [facility] LAB BLOOD ORDERABLES Nimisha l Result Performing Organization Address [facility]/ZIP Co de Phone Number [facility] [address] [place] [phone] * Hemoglobin A1c (03/27/2025 1:31 PM EDT) Hemoglobin A1c 5.1 <6.0 % [facility] Comment:Hemoglobin A1C Refer ence Range Adults: 4.8 - 6.0 % Non diabetic: < 6.0 % Goal: < 7.0 %Additional Action Suggested: > 8.0 %Note: Hemoglobin A1c results are invalid for patients with abnormal amounts of HbF. Blood transfusions may impact the HbA1c concentration in the patient sample. Estimated Average Glucose 100 mg/dL [facility] Comment:eAG = Estimated ave rage glucose which is %A1C expressed asaverage glucose, using the formula of the E8V-UgldmggXqleetc Glucose study (ADAG), Diabetes Care, Vol.31,#8,Jan. 2007 Blood Venous blood specimen / Unknown 03/27/2025 1:31 PM EDT 03/27/2025 4:00 PM EDT us Linda Underwood MD LAB BLOOD ORDERABLES Final Resul t [facility] [address] [place] [phone] * (ABNORMAL) Comprehensive Metabolic Panel (03/27/2025 1:31 PM EDT) Sodium 138 135 - 145 mmol/L [facility] Potassium 3.7 3.3 - 5.1 mmol/L [facility] Chloride 108 96 - 108 mmol/L [facility] Carbon Dioxide 25 22 - 29 mmol/L [facility] Anion Gap 9(L) 12 - 20 [facility] Urea Nitrogen (BUN) 9 9 - 16 mg/dL [facility] Creatinine, Serum 0.53 0.5 - 1.4 mg/dL [facility] Estimated Glomerular Filt Rate >60 [facility] Comment:Chronic Kidney Disea se: Estimated GFR < 60 mL/min/[id number] Kidney Disease: Estimated GFR < 15 mL/min/1.73m2 Glucose 98 60 - 115 mg/dL [facility] Calcium 8.4 8.4 - 10.2 mg/dL [facility] Bilirubin, Total 0.5 0.0 - 1.0 mg/dL [facility] Aspartate Amino Transferase 20 5 - 31 U/L [facility] Alanine Aminotransferase 10 0 - 31 U/L [facility] Total Protein 6.5 6.5 - 8.0 g/dL [facility] Albumin Level 4.3 3.5 - 5.0 g/dL [facility] Alkaline Phosphatase 39 39 - 117 U/L [facility] Blood Venous blood specimen / Unknown 03/27/2025 1:31 PM EDT 03/27/2025 4:03 PM EDT us Linda Underwood MD LAB BLOOD ORDERABLES Final Resul t [facility] [address] [place] [phone] * HPV DNA, Low/High Risk (02/09/2025 10:43 AM EDT) HPV High Risk Negative Negative [facility] HPV Genotype 16 Negative Negative [facility] HPV Genotype 18 Negative Negative [facility] Comment:HPV testing performe d at [facility] (CLIA#[id number]), [address] [place] [address].Testing for HPV was performed using the Grabiel [...] EDT 02/10/2025 8:25 AM EDT Katie Solomon CNM LAB BLOOD ORDERABLES Nimisha jeramy Result [facility] [address] [place] [phone] * Pap Smear (02/09/2025 10:43 AM EDT) Swab Cervix uteri structure / Unknown 02/09/2025 10:43 AM EDT 02/10/2025 8:25 AM EDT Narrative [facility] - 02/16/2025 11:46 AM EDT ----- ------- Name: JOSEJANAE Age/Sex: 44/F : 1980 Unit#: [id number] Attend Dr: KATIE SOLOMON CNM Re02/09/25 Status: DEP REF Location: HO.LNP Disch: ----- ------- SPEC : [id number] RECD: 02/10/25 STATUS: MIKE ADAN NUM: [id number] MAYO: 02/09/25-[address]: KATIE SOLOMON CNM ENTERED: 02/10/25 SP TYPE: Pap Smr OTHR DR: ORDERED: Pap Smear Interpretation Satisfactory for [...] and HPV testing will be performed at [facility] (CLIA #[id number]), [address] [place] [address]. Testing for HPV was performed using the [employer] system. The presence of HPV in the [...] detected. All professional services are performed by [facility] ([address] [place] [address]; ; CLIA #[id number]). The PAP Test is a screening procedure with the inherent possibility of both false negative and false positive results. Results should be interpreted in the context of historic and current clinical findings. Reliability of the PAP Test is enhanced by performing the test on a regular repetitive basis. CONTINUED ON NEXT PAGE ----- ------- Name: JANAE GARCIA Age/Sex: 44/F : 1980 Unit#: [id number] Attend Dr: KATIE SOLOMON CNM Re02/09/25 Status: DEP REF Location: HOArenLNP Disch: ----- ------- SPEC : [id number] RECD: 02/10/25 STATUS: MIKE ADAN NUM: [id number] MAYO: 02/09/25-10[address] [facility] [address]: KATIE SOLOMON CNM ENTERED: 02/10/25 SP TYPE: Pap Smr SUSIE DR: ORDERED: Pap Smear ----- ------- Signed (signature on file) SANDIE Joel (ASCP) 02/16/25 1146 ----- ------- END OF REPORT Katie Solomon CNM LAB CYTOLOGY ORDERABLES F inal Result [facility] [address] [place] [address] [phone] * Mammography Report 1 (02/18/2022 9:25 [...] Underwood MD IMG BI PROCEDURES Final Result from Last 3 Months or Most Recently Relevant to Health Maintenance Insurance [employer] Care Teams Compounder Relationship Specialty Start Date End Date Linda Underwood MD [address] [place] [phone] PCP - General Family Medicine 07/03/21
--- OUTSIDE RECORDS SUMMARY | 2025-06-08 11:26 | XMS_ITS | Encounter Summary ---
Author Organization [employer] Address [address] [place] [address] Care Team Providers Care Sterilization Technician Name Role Phone Linda Underwood MD Primary Care Provider [phone] Encounter Details Date Type Department Care Team ([facility] st Contact Info) Description 06/05/2025 Orders Only [facility] [address] [place], [place] [phone] [facility] [address] [place], [place] [phone] , unspecified gestational age (Primary Dx) Social History Tobacco Use Types Packs/Day Years [...] as of this encounter Plan of Treatment Scheduled Orders Name Type Priority Associated Diagnoses Orde r Schedule hCG, Total, Quantitative Lab Routine , unspecified gestational age Expected: 06/05/2025 (Approximate), Expires: 06/05/2026 documented as of this encounter Visit Diagnoses Diagnosis , unspecified gestational age- Primary documented in this encounter Additional Health Concerns Assessment Noted Time PHQ-9 Depression Total Score: 1 02/10/20 25 11:08 AM EDT documented as of this encounter Care Teams Sterilization Technician Relationship Specialty Start Date End Date Linda Underwood MD [address] [place] [phone] PCP - General Family Medicine 07/03/21 documented as of this encounter
--- OUTSIDE RECORDS SUMMARY | 2025-06-08 11:26 | XMS_ITS | Encounter Summary ---
Author Organization [employer] Address [address] [place] [address] Care Team Providers Care Learning Coach Name Role Phone Linda Underwood MD Primary Care Provider [phone] Reason for Referral * Consultation (Routine) - Closed Specialty Diagnoses / Procedures Referred By Gerardo t Referred To Contact Obstetrics and Gynecology Diagnoses and not yet delivered in first trimester Che Moon FNP [address] [place] [address] Phone: tel: fax: [address] Phone: tel: fax: Referral ID Status Reason Start Date Expiration Date V isits Requested Visits Authorized [id number] Closed Specialty Services Required 06/08/2025 06/08/2026 30 30 Encounter Details Date Type Department Care Team ([facility] st Contact Info) Description 06/07/2025 Orders Only [facility] [address] [place], [place] [phone] Che Moon FNP [address] [place] [phone] and not yet delivered in first trimester (Primary Dx) Social History Tobacco Use Types [...] of this encounter Plan of Treatment Scheduled Referrals Name Type Priority Associated Diagnoses Order Schedule Referral to Obstetrics / Gynecology Outpatient Referral Routine and not yet delivered in first trimester Expected: 06/07/2025 (Approximate), Expires: 06/07/2026 documented as of this encounter Visit Diagnoses Diagnosis and not yet delivered in first trimester- Primary documented in this encounter Additional Health Concerns Assessment Noted Time PHQ-9 Depression Total Score: 1 02/10/20 25 11:08 AM EDT documented as of this encounter Care Teams Learning Coach Relationship Specialty Start Date End Date Linda Underwood MD [address] [place] [address] PCP - General Family Medicine 07/03/21 documented as of this encounter
== END 2025-06-08 09:43 | disposition home or self-care (01) ==
LOC: HO.HMGCLDS 09:42
PROVIDERS: PCP Registered Nurse; Visit Provider Registered Nurse
DX: Z34.90 Encounter for supervision of normal pregnancy, unspecified, unspecified trimester (principal)
CPT/HCPCS: 36415; 84702